=== PATIENT | female | born 1950 | race Caucasian/White ===

== ENCOUNTER → 2018-12-31 | Outpatient (CLI) | payer MEDICARE | END | disposition home or self-care (01) | LOC: OIH 08:11 | PROVIDERS: ATTEND Internal Medicine | DX: S32.10XA Unspecified fracture of sacrum, initial encounter for closed fracture (principal); M53.3 Sacrococcygeal disorders, not elsewhere classified; R07.89 Other chest pain; S09.90XA Unspecified injury of head, initial encounter; M85.88 Other specified disorders of bone density and structure, other site; X58.XXXA Exposure to other specified factors, initial encounter; Y93.89 Activity, other specified; Y92.89 Other specified places as the place of occurrence of the external cause; Y99.8 Other external cause status | CPT/HCPCS: 70260; 71046; 72220 ==

== ENCOUNTER 2019-12-02 10:21 | Emergency (ER) | payer MEDICARE ==
[2019-12-02] MEDS ORDERED: LIDOCAINE HCL 1% 20 ML VIAL ONE (11:22)
== END 2019-12-02 12:43 | disposition home or self-care (01) ==
LOC: EDH 10:21
DX: S01.511A Laceration without foreign body of lip, initial encounter (principal); Z88.2 Allergy status to sulfonamides; Z88.6 Allergy status to analgesic agent; Z90.710 Acquired absence of both cervix and uterus; W18.09XA Striking against other object with subsequent fall, initial encounter; Y93.01 Activity, walking, marching and hiking; Y92.89 Other specified places as the place of occurrence of the external cause; Y99.8 Other external cause status
CPT/HCPCS: 12011; 70450

== ENCOUNTER → 2020-07-25 | Outpatient (CLI) | payer MEDICARE | END | disposition home or self-care (01) | LOC: OIH 09:07 | PROVIDERS: ATTEND Internal Medicine | DX: J45.909 Unspecified asthma, uncomplicated (principal); M40.294 Other kyphosis, thoracic region; I70.0 Atherosclerosis of aorta | CPT/HCPCS: 71046 ==